=== PATIENT | male | born 1945 | race Caucasian/White ===

== ENCOUNTER 2016-06-08 09:00 | Inpatient (IN) | payer MEDICARE, BC ==
[~2016-06-08] VITALS: Ht 175.3 cm; Wt 95.5 kg
[~2016-06-08 09:00] MED LIST: ASPIRIN EC81 M1 PO; FLOMAX0.4 MG PO; LISINOPRIL-HCTZ1 T11 PO; NITROQUICK0.4 MG SL; PROSTATE FORMULA PO; PROTONIX40 MG PO; VENTOLIN HFA18 GM INH; VITAMIN B-121000 MCG PO; ZEBETA5 MG PO
[2016-06-08 09:03] LABS: BASOPHILS 0.2 % (0.0-2.0); EOSINOPHILS 2.7 % (0-7); HEMATOCRIT 43.8 % (42.0-54.0); HEMOGLOBIN 14.7 g/dL (13.5-17.5); IMMATURE GRANULOCYTES 0.4 % (0-5); LYMPHOCYTES 17.7 % (15-50); MCH 28.8 pg (26.0-34.0); MCHC 33.6 g/dL (31.0-37.0); MCV 85.9 fL (80.0-100.0); MEAN PLATELET VOLUME 10.5 fL (7.4-10.4); MONOCYTES 11.6 % (2-11); NEUTROPHILS 67.4 % (40-80); PLATELET COUNT 180 10x3/uL (130-400); RDW 14.3 % (11.5-14.5); WBC 8.1 10x3/uL (4.8-10.8)
[2016-06-08 09:04] LABS: INR 1.07 (0.85-1.17); PROTIME 13.7 SECONDS (11.6-15.0)
[2016-06-08 09:05] LABS: APTT 34.4 SECONDS (22.8-39.4)
[2016-06-08 09:08] LABS: APPEARANCE CLEAR (CLEAR); BILIRUBIN NEGATIVE (NEGATIVE); COLOR YELLOW (YELLOW); GLUCOSE 50 mg/dL (NEGATIVE); KETONE NEGATIVE (NEGATIVE); LEUKOCYTE ESTERASE NEGATIVE (NEGATIVE); NITRITE NEGATIVE (NEGATIVE); PROTEIN NEGATIVE (NEGATIVE); SPECIFIC GRAVITY 1.015 (1.005-1.020)
[2016-06-08] MEDS ORDERED: VIAGRA100 MG PO (09:08)
[2016-06-08 09:09] LABS: CALCIUM 9.5 mg/dL (8.5-10.1); CREATININE - SERUM 1.1 mg/dL (0.6-1.3)
[2016-06-08 09:19] LABS: BACTERIA FEW /hpf (NONE SEEN); EPITHELIAL CELLS RARE /hpf (0-5); MUCUS <1+ /lpf (NONE SEEN); RED CELLS - URINE 0-5 /hpf (0-5); WHITE CELLS - URINE OCC /hpf (0-5)
[2016-06-12] VITALS (17 sets, daily range): BP systolic 99–142; BP diastolic 69–93; Ht 175.3 cm; Wt 95.5 kg
--- NOTE | 2016-06-12 07:36 | NUR ---
LEFT LEG AND FOOT WASHED WITH HIBICLENS AND ALCOHOL PRIOR TO CHLORPREP PER DN
--- NOTE | 2016-06-12 12:33 | NUR ---
* Is the patient Alert and Oriented? Yes 0 * How many steps to enter\exit or inside your home? 3 0 * PCP [facility]ib Louise (Dr. Dylan Sampson) - [place] * [facility] [place] [facility] * Preadmission Environment Home with Family 0 * ADLs Independent 0 * Equipment Rolling Walker 0 * List name and contact numbers for known caregivers / representatives who currently or will assist patient after discharge: Spouse - Elvia [phone] or [phone] 0 * Additional services required to return to the preadmission environment? Yes 0 * Can the patient safely return to the preadmission environment? Yes 0 * Has this patient been hospitalized within the prior 30 days at any hospital? No 06/12/2016 12:34 DCP: Discharge Planning Patient Name: LORRAINE ANDRADE Admission Status: Elective Accout number: [id number] Admission Date: 06-12-2016 : 1945 Admission Diagnosis: Attending: NORBERT Current LOS: 1 Anticipated DC Date: 06-14-2016 Planned Disposition: Outpatient PT\OT Primary Insurance: MEDICARE A & B Discharge Planning Comments: CM met with patient to assess dc plans/needs. Patient states he lives at home with his , Elvia. Prior to admission, he was using a cane for mobility, but does have a rolling walker at home. At dc, he will return home with his . He is agreeable to outpatient physical therapy. CPM has been ordered by MD office through [facility] prior to admission & will be delivered to the hospital before discharge. CM will follow. Metal Stud Framer: Bernice N[place]
--- NOTE | 2016-06-12 12:39 | NUR ---
RECEIEVED PT FROM PACU AT 0915. NO CMPLAINTS AT PRESENT. RG WRAP TO LEFT LEG TO ANKLE WITH ICE NOTED TO LEFT KNEE. VS STABLE. CALL LIGHT IN REACH. AT BEDSIDE
--- NOTE | 2016-06-12 19:20 | NUR ---
RECIEVED SHIFT REPORT. PT IS LYING IN BED. ALERT AND ORIENTED AND ABLE TO VERBALIZE NEEDS. IV IS PATENT AND FLUIDS ARE RUNNING PER ORDER. SCD'S ON. CPM ON. O2 @ 2 PER NASAL CANNULA. DRESSING TO LEFT KNEE C/D/I. NO NEEDS ARE VERBALIZED AT THIS TIME. WILL CONTINUE TO MONITOR. SIDE RAILS ARE UP X 2. BED IS IN LOWEST POSITION. BED ALARM IS ON FOR SAFETY. CALL LIGHT IS WITHIN REACH.
--- NOTE | 2016-06-12 21:14 | NUR ---
SHIFT ASSESSMENT COMPLETED. NIGHT MEDS GIVEN WITH NO PROBLEMS. PT C/O PAIN 09/04. ADMINISTERED PRESCRIBED PRN NORCO PER ORDER. DENIES FURTHER NEEDS. WILL MONITOR. SIDE RAILS X 2. BED LOW. BED ALARM ON. CALL LIGHT IN REACH.
[2016-06-13 00:21] VITALS: BP 122/69
[2016-06-13 05:00] VITALS: BP 130/61
[2016-06-13 06:46] LABS: BASOPHILS 0.1 % (0.0-2.0); EOSINOPHILS 0.4 % (0-7); HEMATOCRIT 32.7 % (42.0-54.0); HEMOGLOBIN 10.6 g/dL (13.5-17.5); IMMATURE GRANULOCYTES 0.4 % (0-5); LYMPHOCYTES 11.8 % (15-50); MCH 28.1 pg (26.0-34.0); MCHC 32.4 g/dL (31.0-37.0); MCV 86.7 fL (80.0-100.0); MEAN PLATELET VOLUME 10.9 fL (7.4-10.4); MONOCYTES 14.8 % (2-11); NEUTROPHILS 72.5 % (40-80); PLATELET COUNT 161 10x3/uL (130-400); RBC 3.77 10x6/uL (4.20-6.10); RDW 14.5 % (11.5-14.5); WBC 10.2 10x3/uL (4.8-10.8)
[2016-06-13 07:16] LABS: ALBUMIN 2.8 g/dL (3.4-5.0); ANION GAP 11.4 mmol/L (8-16); BILIRUBIN - TOTAL 0.47 mg/dL (0.2-1.3); CALCIUM 8.1 mg/dL (8.5-10.1); CARBON DIOXIDE 26.2 mmol/L (21.0-32.0); CREATININE - SERUM 1.2 mg/dL (0.6-1.3); POTASSIUM - SERUM 3.6 mmol/L (3.5-5.1)
--- NOTE | 2016-06-13 07:48 | NUR ---
AWAKE AND ALERT. ORIENTED X3. NO C/O AT THIS TIME. ON CPM. LUNGS ARE CLEAR BILATERALLY, NO COUGH NOTED. REPORTS USING IS INSTRUCTED. SKIN IS INTACT WITHOUT REDNESS EXCEPT INCISION TO LEFT KNEE WHICH HAS A DRY INTACT DRESSING IN PLACE. SCD'S IN PLACE. IV TO RIGHT HAND PATENT WITHOUT REDNESS AT INSERTION SITE. DENIES NEEDS.
[2016-06-13 07:53] VITALS: BP 115/58
--- NOTE | 2016-06-13 09:15 | NUR ---
UP TO CHAIR AT BEDSIDE PER PT. REQUESTED AND GIVEN ONE HYDROCODONE PO FOR C/O LEFT KNEE PAIN LEVEL 7. WILL MONITOR.
[2016-06-13 12:25] VITALS: BP 110/68
[2016-06-13 16:18] VITALS: BP 115/51
--- NOTE | 2016-06-13 19:25 | NUR ---
RECIEVED SHIFT REPORT. PT IS LYING IN BED. ALERT AND ORIENTED AND ABLE TO VERBALIZE NEEDS. IV IS PATENT AND SALINE LOC. CPM ON. SCD'S ON. DRESSING TO LEFT KNEE C/D/I. PT STATES PAIN IS 4/10. NO NEEDS ARE VERBALIZED AT THIS TIME. WILL CONTINUE TO MONITOR. SIDE RAILS ARE UP X 2. BED IS IN LOWEST POSITION. BED ALARM ON FOR SAFETY. CALL LIGHT IS WITHIN REACH.
--- NOTE | 2016-06-13 19:38 | NUR ---
ATE ALL OF SUPPER. NO C/O AT THIS TIME. DENIES NEEDS. NO CHANGES NOTED.
--- NOTE | 2016-06-13 21:16 | NUR ---
SHIFT ASSESSMENT COMPLETED. NIGHT MEDS GIVEN WITH NO PROBLEMS. PT C/O PAIN 12/04. ADMINISTERED PRESCRIBED PRN NORCO PER ORDER. DENIES FURTHER NEEDS. WILL MONITOR. SIDE RAILS X 2. BED LOW. CALL LIGHT IN REACH.
[2016-06-13 22:00] VITALS: BP 115/57
[2016-06-14 05:35] LABS: BASOPHILS 0.2 % (0.0-2.0); EOSINOPHILS 3.7 % (0-7); HEMATOCRIT 29.4 % (42.0-54.0); HEMOGLOBIN 9.5 g/dL (13.5-17.5); IMMATURE GRANULOCYTES 0.5 % (0-5); LYMPHOCYTES 12.3 % (15-50); MCH 27.8 pg (26.0-34.0); MCHC 32.3 g/dL (31.0-37.0); MEAN PLATELET VOLUME 11.2 fL (7.4-10.4); MONOCYTES 16.2 % (2-11); NEUTROPHILS 67.1 % (40-80); PLATELET COUNT 147 10x3/uL (130-400); RBC 3.42 10x6/uL (4.20-6.10); RDW 14.7 % (11.5-14.5); WBC 8.8 10x3/uL (4.8-10.8)
[2016-06-14 05:47] LABS: ALBUMIN 2.6 g/dL (3.4-5.0); ANION GAP 10.3 mmol/L (8-16); BILIRUBIN - TOTAL 0.6 mg/dL (0.2-1.3); CALCIUM 7.3 mg/dL (8.5-10.1); CARBON DIOXIDE 28.1 mmol/L (21.0-32.0); CREATININE - SERUM 1.2 mg/dL (0.6-1.3); POTASSIUM - SERUM 3.4 mmol/L (3.5-5.1); PROTEIN - SERUM 5.5 g/dL (6.4-8.2)
--- NOTE | 2016-06-14 08:03 | NUR ---
PT SEEN AND ASSESSED. LEFT KNEE IN CPM MACHINE AT PRESENT. COMPLAINS OF MINIMAL PAIN-RECENTLY HAD PAIN MEDS. ABLE TO MOVE TOES FREELY-WARM AND PINK. RG WRAP NOTED MIDTHIGH TO CALF. BED ALARM ON FOR SAFETY. CALL LIGHT IN REACH
[2016-06-14 08:13] VITALS: BP 135/67
--- NOTE | 2016-06-14 11:54 | NUR ---
06/14/2016 11:53 DCP: Discharge Planning Patient has decided to go to outpatient physical therapy over home health. He has chosen [facility] in [place] for outpatient physical therapy. Appt. scheduled 06/16 @ [id number]. Rx faxed. Anticipate dc this afternoon after CPM delivered.
[2016-06-14 11:56] VITALS: BP 143/70
[2016-06-14] MEDS ORDERED: ELIQUIS2.5 MG PO (12:39)
[2016-06-14] MEDS ORDERED: PERCOCET 10/3251 TA1 PO (12:42)
--- NOTE | 2016-06-14 13:36 | NUR ---
DRESSING CHANGED TO LEFT KNEE. INCISION AND CLIPS ARE CLEAN AND DRY AND INTACT. NEW AQUUACELL DRESSING APPLIED
--- NOTE | 2016-06-26 18:23 | OP ---
PATIENT NAME: LORRAINE ANDRADE MEDICAL RECORD: [id number] :43 LOCATION:D.MS [id number] ADMISSION DATE:06/12/16 SURGEON: TEZ SALAZAR MD DATE OF OPERATION: 06/12/2016 PREOPERATIVE DIAGNOSIS: Degenerative arthritis, left knee. POSTOPERATIVE DIAGNOSIS: Degenerative arthritis, left knee. PROCEDURE: Left total knee arthroplasty. SURGEON: Tez Salazar MD ANESTHESIA: General. INTRAOPERATIVE COMPLICATIONS: None. SUMMARY OF PATHOLOGIC FINDINGS: Severe extensive osteoarthritis of the knee, tricompartmental. IMPLANTS USED: Erin triathlon total knee arthroplasty size 6 distal femur, 11 polyethylene insert, 6 tibial baseplate, and 31 patellar component. OPERATIVE SUMMARY IN DETAIL: After obtaining the appropriate preoperative orthopedic surgery consent as well as anesthetic consultation, evaluation and clearance, the patient was brought to the operating room and placed on the operating table in supine position. After adequate general laryngeal mask was administered, tourniquet was placed about the proximal aspect of the left lower extremity. Left lower extremity was then prepped and draped in a routine sterile fashion. The leg was elevated and exsanguinated, tourniquet inflated to 350 mmHg. Midline incision was taken down for a paramedian arthrotomy. Patella was everted. Soft tissue excision was done in the usual fashion. Intramedullary guide hole was created for distal femur cuts, intramedullary guide hole was created in the proximal tibia for a proximal tibial cut. Measurements were taken. Chamfer cuts were made. Trials were put into place. Final preparations were made on the distal femur and proximal tibia followed by resection of the articular aspect of the patella. Final preparations of patella likewise were made. The knee was irrigated using pulsatile lavage system. Bony ends were dried. Final components were cemented into place. All excess cement was removed. After the cement was allowed to harden, the knee was taken through a range of motion and found to be stable in all planes. Paramedian arthrotomy was closed with #2 Ethibond followed by #1 Vicryl, 2-0 Vicryl and skin hanna. Sterile dressings were applied. The patient was awakened, taken to recovery in stable condition. All final needle and sponge counts were correct. TRANSINT:[id number] Voice Confirmation ID: [id number] DOCUMENT ID: [id number] OPERATIVE REPORT [id number] ANDRADELORRAINE MD, TEZ ROMERO at 1823 CC: [id number] DICTATION DATE: 06/12/16815 BELTING AND WEBBING INSPECTOR: 06/12/16 0828 DIS IN 06/14/16 [address] [place] [address]
== END 2016-06-14 16:21 | disposition home or self-care (01) | DRG 470 ==
LOC: D.MS 06-12 05:14 → D.SDCHOLD 06-12 05:14 → D.MS 06-12 08:28 → D.SDCHOLD 06-12 08:50 → D.MS 06-14 16:21
PROVIDERS: Family Medicine; ADMIT Orthopaedic Surgery
PROC: 0SRD0JZ Replacement of Left Knee Joint with Synthetic Substitute, Open Approach (ICD-10-PCS; principal; 2016-06-12 07:30)
DX: M17.12 Unilateral primary osteoarthritis, left knee (principal); D62 Acute posthemorrhagic anemia; I25.10 Atherosclerotic heart disease of native coronary artery without angina pectoris; J45.909 Unspecified asthma, uncomplicated

== ENCOUNTER 2018-03-21 10:56 | Outpatient (CLI) | payer MEDICARE, BC ==
[~2018-03-21] VITALS: Ht 175.3 cm; Wt 96.4 kg
--- NOTE | ~2018-03-21 | OP ---
PATIENT NAME: LORRAINE ANDRADE MEDICAL RECORD: [id number] :43 LOCATION:D.CAT ADMISSION DATE: SURGEON: RHINA GARCIA MD DATE OF OPERATION: 03/21/2018 PROCEDURES: Left heart catheterization, selective coronary angiography, right femoral artery approach. CATHETERS: A 5-Sudanese sheath, 5/4 left and right Zaynab, 5/4 pig. The procedure was well tolerated. The patient was returned to the garzon, sheath removed. ExoSeal device placed. FINDINGS: Left ventriculography in 30-degree CHILDERS view, normal wall motion, normal systolic function. CORONARY ANATOMY: LEFT MAIN: Left main is free of disease. LAD: An area of previous stenting shows a very discrete 80% stenosis in its midportion of restenosis. There is a small ramus branch that has ostial stenosis. CIRCUMFLEX: Large circumflex free of disease. RIGHT CORONARY ARTERY: Dominant artery, free of disease. 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 PLAN: Intervention momentarily. DESCRIPTION OF PROCEDURE: A 5-Sudanese sheath was exchanged for a 6-Sudanese sheath. A 3.5 EBU guiding catheter provided excellent guide catheter support followed by 300 cm Whisper wire placed across tightly occluded LAD down this portion of this vessel. We dilated with a 3.0 50-mm Routt balloon up to 14 atmospheres. This showed excellent resolution of an 80% restenosis. No significant residual. ZACHERY flow was 3 throughout the procedure. We did attempt to wire the ostium of the ramus intermediate branch, however, unable to do this given the small diameter of the vessel, felt this to be best managed medically. Sheath closed with ExoSeal device. Plavix was loaded in the lab. TRANSINT:[id number] Voice Confirmation ID: [id number] DOCUMENT ID: [id number] RHINA GARCIA MD at 1418 CC: [id number] DICTATION DATE: 03/21/18 1507 DRIVER LIFTER OF [employer]ITATION TRUCK: 03/21/181936 DEP CLI 03/21/18 [facility] [address] [place] [address]
--- NOTE | ~2018-03-21 | HEMODYNAMI ---
PATIENT:LORRAINE ANDRADE MEDICAL RECORD: [id number] : 41 LOCATION:[facility] ADMISSION DATE: 03/21/18 Generatedon:03/21/201815:09 Patient name: LORRAINE ANDRADE Patient #: [id number] SSN: : 1945 Date of study: 03/21/2018 Page: Of Hemodynamic Procedure Report Patient Data Patient Demographics Procedure consent was obtained First Name: LORRAINE Gender: Male Last Name: LUPE : 1945 Patient #: [id number] Age: 72 year(s) Race: Unknown Additional ID: [id number] Contact details Address: [place] [address] State: [place] City: [place] Zip code: [address] Past Medical History Allergies: No known allergies Admission Admission Data Admission Date: 03/21/2018 Admission Time: 10:56 Height (in.): 68 BSA: 2.1 (m2) Height (cm.): 172.72 BMI: 32.23 (kg/m2) Weight (lbs.): 212 Weight (kg.): 96.16 Lab Results Lab Result Date: 03/21/2018 Lab Result Time: 0:00 Biochemistry Name Units Result Min Max BUN mg/dl 14 --(--*-)-- 7 18 Creatinine mg/dl 1.3 --(---*)-- 0.6 1.3 CBC Name Units Result Min Max Hemoglobin g/dl 14.2 --(*---)-- 13.5 17.5 Procedure Procedure Types Cath Procedure Diagnostic Procedure LHC LHC w/Coronaries Sedation Charges Moderate Sedation up to 15 minutes PCI Procedure PTCA PTCA Initial Procedure Description Procedure Date Procedure Date: 03/21/2018 Procedure Start Time: 14:40 Procedure End Time: 14:59 Procedure Staff Name Function Musa Longoria MD Performing Physician Christiana Gomez RT Scrub Leslie Celestin RN Nurse Sasha Zaidi RT Monitor Procedure Data Cath Procedure Fluoroscopy Diagnostic fluoroscopy Total fluoroscopy Time: 5.5 time: 5.5 min min Diagnostic fluoroscopy Total fluoroscopy dose: 675 dose: 675 mGy mGy Contrast Material Contrast Material Type Amount (ml) Isovue 300 92 Entry Location Entry Primary Successful Side Size Upsize Upsize Entry Closure Succes sful Closure Location (Fr) 1 (Fr) 2 (Fr) Remarks Device Remarks Femoral Right 5 Fr 6 Fr Exoseal artery Short Estimated blood loss: 10 ml Diagnostic catheters Device Type Used For End Catheter Placement MULTIPACK JL 4.0 5Fr Left Coronary catheter Angiography MULTIPACK 3DRC 5Fr Right Coronary catheter Angiography MULTIPACK Pigtail 5 Fr LV Angiography catheter Procedure Complications No complications Procedure Medications Medication Administration Route Dosage 0.9% NaCl I.V. 100 ml/hr Oxygen etCO2 Nasal cannula 2 l/min Lidocaine 2% added to field 20 Heparin Flush Bag added to field 2 bags (1000units/500ml NS) Versed I.V. 2 mg Fentanyl I.V. 50 mcg Versed I.V. 1 mg Fentanyl I.V. 25 mcg Heparin Bolus I.V. 5000 units Integrilin (Bolus I.V. 8.5 ml 2mg/ml) Plavix P.O. 600 mg Hemodynamics Rest BSA: 2.1 (m2) O2 Consumption: Estimated: 218.37 (ml/min) O2 Consumption indexed: Estimated:103.99 (ml/min/m) Heart Rate: 41 (bpm) Pressure Samples Time Site Value (mmHg) Purpose Heart Use Rate(bpm) 14:47 LV 104/4,15 Snapshot 42 14:47 AO 115/68(89) Pullback 60 14:47 LV 114/11,12 Pullback 60 Gradients Valve Time Site 1 Site 2 Mean SEP/DFP Peak To Heart Use (mmHg) (sec/min) Peak Rate (mmHg) (bpm) Aortic 14:47 LV AO 0 9 0 60 114/11,12 115/68(89) Calculations Valve P-P Mean Valve Index Valve Source Name Gradient Area Flow (cm2) Aortic 0 0 0 0 Snapshots Pre Cath Intra NCS Post Cath Vital Signs Time Heart Resp SPO2 etCO2 NIBP (mmHg) Rhythm Pain Sedation Rate (ipm) (%) (mmHg) Status Level (bpm) 14:18:45 51 15 99 22.4 155/89(126) SB 0 (11) 10(A) , No pain 14:23:11 55 13 98 25 135/79(109) SB 0 (11) 10(A) , No pain 14:27:29 55 13 97 23.7 125/75(91) SB 0 (11) 10(A) , No pain 14:31:45 53 14 97 26 126/75(91) SB 0 (11) 10(A) , No pain 14:36:01 54 14 97 22 120/73(91) SB 0 (11) 10(A) , No pain 14:40:09 52 15 98 20.8 125/78(102) SB 0 (11) 10(A) , No pain 14:44:21 60 13 98 37 129/81(96) NSR 0 (11) 10(A) , No pain 14:48:39 60 14 98 28 126/72(99) NSR 0 (11) 10(A) , No pain 14:52:55 64 15 97 23.8 121/74(93) NSR 0 (11) 10(A) , No pain 14:57:05 64 16 97 38 138/81(114) NSR 0 (11) 10(A) , No pain Medications Time Medication Route Dose Verified Delivered Reason Notes Effectiveness by by 14:25:42 0.9% NaCl I.V. 100 Musa Leslie used for ml/hr [facility] procedure MD FRIAS 14:25:49 Oxygen etCO2 2 Musa Leslie used for Nasal l/min [facility] procedure cannula MD FRIAS 14:25:54 Lidocaine 2% added 20ml Musa Vigil for local to vial [facility] anesthetic field MD [place] 14:25:59 Heparin Flush added 2 Musa Musa used for Bag to bags [facility] procedure (1000units/500ml field MD [place] NS) 14:26:08 Versed I.V. 2 mg Musa Leslie for sedation [facility] Celestin MD, RN 14:26:16 Fentanyl I.V. 50 Musa Leslie for sedation mcg [facility] Talib Celestin MD, RN 14:40:59 Versed I.V. 1 mg Musa Leslie for sedation [facility] Talib Celestin MD, RN 14:41:04 Fentanyl I.V. 25 Musa Leslie for sedation mcg [facility] Talib Celestin MD, RN 14:51:17 Heparin Bolus I.V. 5000 Musa Leslie for verif ied units [facility] anticoagulation with Dr. MD FRIAS J Carlos 14:51:57 Integrilin I.V. 8.5 Musa Nelson for waste d (Bolus 2mg/ml) ml [facility] anticoagulation 1.5 mL MD FRIAS 14:53:52 Plavix P.O. 600 Musa Nelson for mg [facility] Talib Celestin antiplatelet RN therapy Procedure Log Time Note 13:15:43 Signed procedure consent form obtained from patient. 13:15:44 Time tracking: Regular hours (M-F 7:00 - 5:00) 13:15:49 Plan of Care:Hemodynamics will remain stable., Cardiac rhythm will remain stable., Comfort level will be maintained., Respiratory function will remain adequate., Patient/ family verbilizes understanding of procedure., Procedure tolerated without complication., Recovers from procedure without complications.. 13:16:06 H&P Date Dictated: 03/15/2018 Within 30 days and on chart., H&P Addendum completed by physician on day of procedure. (MUST COMPLETE FOR ALL OUTPATIENTS). 13:16:13 Patient allergic to No known allergies 13:16:37 Patient Height : 68 inches 13:16:41 Patient Weight : 212 lbs 13:18:50 Lab Result : BUN 14 mg/dl 13:18:50 Lab Result : Creatinine 1.3 mg/dl 13:18:50 Lab Result : Hemoglobin 14.2 g/dl 14:03:04 Leslie Celestin RN sent for patient. Start room use. 14:09:47 Patient received from Pre/Post Procedure Room to [facility] 1 Alert and oriented. Tansferred to table in Supine position. 14:09:49 Warm blankets applied, and ellie hugger turned on for patient comfort. 14:09:50 Correct patient and procedure confirmed by team. 14:09:51 ECG and BP/O2 sat monitors applied to patient. 14:17:37 Vital chart was started 14:20:25 Baseline sample Acquired. 14:20:29 Rhythm: sinus bradycardia 14:20:31 Full Disclosure recording started 14:21:20 Pre-procedure instructions explained to patient. 14:21:21 Pre-op teaching completed and patient verbalized understanding. 14:21:26 Family in waiting room. 14:21:30 Patient NPO since Midnight. 14:21:40 Is the patient allergic to Iodine/contrast media? No. 14:21:44 Is patient on blood thinner?No 14:21:46 Patient diabetic? No. 14:21:49 Previous problem with sedation/anesthesia? No ? 14:21:50 Snore? Yes 14:21:51 Sleep apnea? No 14:21:52 Deviated septum? No 14:21:53 Opens mouth fully? Yes 14:21:54 Sticks out tongue? Yes 14:21:56 Airway obstruction? No ? 14:22:01 Dentures? Yes OUT 14:22:04 Pre procedure: right dorsailis pedis pulse 2+ Normal; easily identifiable; not easily obliterated 14:22:09 Modified Yaya's test Ulnar > 7 seconds. 14:22:11 Patient pain scale 0/10 ?. 14:22:18 IV patent on arrival in left forearm with 0.9% NaCl at [facility] 14:22:20 Lab results completed and on chart. 14:22:24 Right groin area was prepped with chlora-prep and draped in sterile fashion 14:22:25 Alarms reviewed by R. N. 14:22:25 Sharps counted by scrub and verified by R.N. 14:22:30 Use device set Femoral Dx 14:22:33 ACIST Syringe (79660) opened to sterile field. 14:22:34 Bag Decanter (2002S) opened to sterile field. 14:22:34 Medline Cath Pack ([id number]) opened to sterile field. 14:22:35 DIAGNOSTIC WIRE .035 260cm J wire (294381) opened to sterile field. 14:22:37 ACIST Hand Control (74729) opened to sterile field. 14:22:37 ACIST Manifold (38909) opened to sterile field. 14:22:38 DIAGNOSTIC Multipack 5Fr catheter set (CA3781) opened to sterile field. 14:22:39 Tegaderm 4 x 4 (1626W) opened to sterile field. 14:22:40 SHEATH Prelude 5Fr 0.035 ([id number]-8U-86-035) opened to sterile field. 14:23:31 Final Timeout: patient, procedure, and site verified with staff and physician. All members of the team are in agreement. 14:23:32 Right groin site verified by team. 14:23:37 Physical assessment completed. ASA score P 2 - A patient with mild systemic disease as per Musa Longoria MD. 14::42 Sedation plan: IV Moderate Sedation Medication:Versed, Fentanyl 14::42 0.9% NaCl 100 ml/hr I.V. was administered by Leslie Celestin RN; used for procedure; 14::49 Oxygen 2 l/min etCO2 Nasal cannula was administered by Leslie Celestin RN; used for procedure; 14::54 Lidocaine 2% 20ml vial added to field was administered by Musa Longoria MD; for local anesthetic; 14::59 Heparin Flush Bag (1000units/500ml NS) 2 bags added to field was administered by Musa Longoria MD; used for procedure; 14:26:00 Zero performed for pressure channel P1 14:26:08 Versed 2 mg I.V. was administered by Leslie Celestin RN; for sedation; 14:26:16 Fentanyl 50 mcg I.V. was administered by Leslie Celestin RN; for sedation; 14:40:18 Procedure started. 14:40:22 Local anesthetic to right femoral artery with Lidocaine 2% by Musa Longoria MD.INITIAL ACCESS ONLY 14:40:56 A 5 Fr sheath was inserted into the Right Femoral artery 14::59 Versed 1 mg I.V. was administered by Leslie Celestin RN; for sedation; 14:41:04 Fentanyl 25 mcg I.V. was administered by Leslie Celestin RN; for sedation; 14:41:24 A MULTIPACK JL 4.0 5Fr catheter was advanced over the wire and used for Left Coronary Angiography. 14:44:30 Catheter removed. 14:44:37 A MULTIPACK 3DRC 5Fr catheter was advanced over the wire and used for Right Coronary Angiography. 14:45:49 Catheter removed. 14:46:19 A MULTIPACK Pigtail 5 Fr catheter was advanced over the wire and used for LV Angiography. 14:47:16 LV gram done using CHILDERS 14:47:24 EF : 50 % 14:47:33 Injector settings: Ml/sec: 10, Volume: 20, 14:48:23 Use device set [place] PCI 14:48:26 SHEATH Prelude 6Fr 0.035 (YON-4Z-05-035) opened to sterile field. 14:48:30 INFLATOR Merit BasixCompak (EU4917) opened to sterile field. 14:48:31 WHISPER 300cm guide wire ([id number]) opened to sterile field. 14:48:50 Catheter removed. 14:49:07 Sheath upsized to a 6 Fr Short. 14:51:16 6 Fr EBU 3.5 guide catheter was inserted over the wire 14:51:17 Heparin Bolus 5000 units I.V. was administered by Leslie Celestin RN; for anticoagulation; verified with Dr. Whitman 14:51:57 Integrilin (Bolus 2mg/ml) 8.5 ml I.V. was administered by Leslie Celestin RN; for anticoagulation; wasted 1.5 mL 14:52:45 WHISPER wire advanced. 14:53:36 Inflate balloon Inflation number: 1 A EMERGE OTW 3.0 x 15 balloon ([id number]) was prepped and advanced across the Mid LAD, then inflated to 12 MIKE for 0:31 (min:sec). 14:53:52 Plavix 600 mg P.O. was administered by Leslie Celestin RN; for antiplatelet therapy; 14:54:12 Wire redirected to RAMUS. 14:55:43 Balloon removed over the wire. 14:55:44 Wire removed. 14:55:45 Guide catheter removed. 14:56:01 Sheath removed intact; hemostasis achieved with Exoseal to the Right Femoral artery. 14:56:03 Procedure ended.(Physican Out) 14:56:14 Fluoroscopy time 05.50 minutes. 14:56:19 Fluoroscopy dose: 675 mGy 14:56:19 Flurop Dose total: 675 14:56:23 Contrast amount:Isovue 300 92ml. 14:56:38 Sharps counted by scrub and verified by R.N. 14:56:42 Insertion/operative site no bleeding no hematoma. 14:56:45 Post-op/insertion site Right Femoral artery dressed using a 4 x 4 and Tegaderm. 14:56:48 Post right femoral artery:stable, clean and dry 14:57:04 EXOSEAL 6Fr (EX600) opened to sterile field. 14:57:09 Post Procedure Pulses reassessed and unchanged 14:57:18 Post-procedure physical assessment completed. ASA score P 2 - A patient with mild systemic disease as per Musa Longoria MD. 14:57:22 Post procedure rhythm: sinus rhythm 14:57:25 Estimated blood loss: 10 ml 14:57:27 Post procedure instruction explained to patient.Patient verbalizes understanding. 14:57:27 Patient needs reinforcement of post procedure teaching. 14:57:32 Procedure Complication : No complications 14:57:36 See physician's report for complete and final results. 14:57:46 Procedure type changed to Cath procedure, Diagnostic procedure, LHC, LHC w/Coronaries, Sedation Charges, Moderate Sedation up to 15 minutes, PCI procedure, PTCA, PTCA Initial 14:58:12 Post right femoral artery:hematoma 14:58:17 Femstop placed over the right femoral artery at 170 mmHg. Hemostasis achieved. 14:59:23 Procedure and supply charges have been captured, reviewed, submitted and are correct. 14:59:36 Vital chart was stopped 14:59:39 Report given to Pre/Post Procedure Room. 14:59:41 Patient transfered to Pre/Post Procedure Room with Stretcher. 14:59:43 Procedure ended. 14:59:43 Full Disclosure recording stopped 15:00:58 FEMSTOP Gold ([id number]) opened to sterile field. 15:08:52 End room use (Document Last) Intervention Summary Intervention Notes Time ActionType Lesion and Equipment Action# Pressure Duration Attributes Used 14:53:36 Inflate Mid LAD EMERGE OTW 1 12 00:31 balloon 3.0 x 15 balloon ([id number]) Device Usage Item Name Manufacture Quantity Catalog Number Hospital Part Current Minimal Lot# / Charge Number Stock Stock Serial# Code ACIST Syringe Acist 1 08674 526548 871415 629612 20 (31064) [employer] Bag Decanter Microtek 1 375162 25750 293688 5 () Medical Inc. Medline Cath Medline 1 [id number] 559129 76706 172260 5 Pack ([id number]) DIAGNOSTIC WIRE St Nadeem 1 733269 646589 586735 091201 30 .035 260cm J wire (049703) ACIST Hand Acist 1 88553 907396 762631 828479 5 Control (15891) [employer] ACIST Manifold Acist 1 66789 054231 430567 669366 5 (59074) [employer] Inc DIAGNOSTIC Cardinal 1 LN0813 450857 21215 962279 30 Multipack 5Fr Health catheter set (ER1656) Tegaderm 4 x 4 3M 1 1626W 590313 217593 542228 5 (1626W) SHEATH Prelude Merit 1 EBJ-0H-35-035 015253 671571 671475 5 5Fr 0.035 Medical (GCF-9Z-22-035) MULTIPACK JL Cardinal 1 233178 5 4.0 5Fr Health catheter MULTIPACK 3DRC Cardinal 1 448106 5 5Fr catheter Health MULTIPACK Cardinal 1 278494 5 Pigtail 5 Fr Health catheter SHEATH Prelude Merit 1 NXF-9D-04-35 091167 5872865 912205 5 6Fr 0.035 Medical (IOU-0G-14-035) INFLATOR Merit Merit 1 RM5763 091689 654960 648360 15 BasixCompak Medical (KR2463) WHISPER 300cm [place] 1 [id number] 204920 584834 922676 5 guide wire Vascular ([id number]) EMERGE OTW 3.0 [place] 1 [id number] 235208 717512 691641 5 [id number] x 15 balloon Scientific ([id number]) EXOSEAL 6Fr Cardinal 1 EX600 297670 691630 180315 10 (EX600) Health FEMSTOP Gold St Nadeem 1 Z40210 334695 742727 802973 5 (I05584) Signature Audit [place] Stage Time Signature Unsigned Intra-Procedure 03/21/2018 Sasha 3:09:39 PM Counts RT(R) Signatures Monitor : Sasha Signature : Counts RT Date : Time : [facility] [address] [place] [address]
[~2018-03-21 10:56] MED LIST changes: +ELIQUIS2.5 MG PO; +PERCOCET 10/3251 TA1 PO; +VIAGRA100 MG PO
[2018-03-21 11:32] VITALS: BP 147/63; Ht 175.3 cm; Wt 96.4 kg
[2018-03-21 11:45] LABS: BASOPHILS 0.4 % (0-2); EOSINOPHILS 3.5 % (0-7); HEMOGLOBIN 14.2 g/dL (13.5-17.5); IMMATURE GRANULOCYTES 0.4 % (0-5); LYMPHOCYTES 18.3 % (15-50); MCH 28.6 pg (26.0-34.0); MCHC 33.8 g/dL (31.0-37.0); MCV 84.5 fL (80.0-100.0); MEAN PLATELET VOLUME 10.5 fL (7.4-10.4); MONOCYTES 9.1 % (2-11); NEUTROPHILS 68.3 % (40-80); PLATELET COUNT 171 10x3/uL (130-400); RBC 4.97 10x6/uL (4.20-6.10); RDW 14.5 % (11.5-14.5)
[2018-03-21 11:53] LABS: ANION GAP 12.8 mmol/L (8-16); CALCIUM 8.9 mg/dL (8.5-10.1); CARBON DIOXIDE 29.2 mmol/L (21.0-32.0); CREATININE - SERUM 1.3 mg/dL (0.6-1.3)
[2018-03-21] MEDS ORDERED: PLAVIX75 MG PO (15:22)
== END 2018-03-21 18:35 | disposition home or self-care (01) ==
LOC: D.CATH 10:56
PROVIDERS: Internal Medicine Interventional Cardiology
DX: I25.110 Atherosclerotic heart disease of native coronary artery with unstable angina pectoris (principal)

== ENCOUNTER → 2019-10-23 09:23 | Outpatient (CLI) | payer MEDICARE, BC ==
[2018-03-21 11:32] VITALS: BMI 31.3
[~2019-10-23 09:23] MED LIST changes: +PLAVIX75 MG PO
--- NOTE | 2019-10-24 12:12 | EC ---
PATIENT:LORRAINE ANDRADE DATE OF SERVICE: 10/23/19 SEX: M MEDICAL RECORD: [id number] DATE OF : 41 LOCATION:[facility] AGE OF PATIENT: 74 ADMISSION DATE: 10/23/19 REFERRING PHYSICIAN: INTERPRETING PHYSICIAN: RHINA GARCIA MD ECHOCARDIOGRAM REPORT ECHO CHARGES 4 ECHO COMPLETE Date: 10/23/19 CLINICAL DIAGNOSIS: H/O CAD/HTN ECHOCARDIOGRAPHIC MEASUREMENTS (adult normal given) AC root (d.<3.7cm) 2.9 cm LV Septum d (<1.2 cm> 1.2 cm Valve Excursion 1.5 cm LV Septum (systole) 1.8 cm Left Atria (s.<4.0cm> 4.8 cm LVPW d(<1.2cm) 1.2 cm RV (d.<2.3cm) 3.3 cm LVPW (sytole) 2.0 cm LV diastole(<5.6CM) 5.8 cm MV E-F(>70mm/sec) cm LV systole 3.1 cm LVOT Diameter 1.8 cm MV exc.(>10mm) cm Est.ejection fraction (50-75%) % DOPPLER: LVIT cm/sec A 45.0 cm/sec E 65.0 cm/sec LA cm/sec RVSP 34.0 mmHg LVOT 93.0 cm/sec AOP1/2T m/s Asc. Ao 165 cm/sec RVOT 56.0 cm/sec RA cm/sec PA 83.0 cm/sec AV Gradient Peak 11.0 mmHg AV Mean 6.6 mmHg AV Area 1.4 cm MV Gradient Peak 2.9 mmHg MV Mean 0.54 mmHg MV Area cm COMMENTS: OP - HC Corporate Legal Assistant: 1 LIZA HOLLAND Machine Sizer: 3 Dr. Whitman TAPE# PACS Pericardial Effusion N DATE OF SERVICE: Adequate 2D, color flow imaging, spectral Doppler, and M-Mode. LVH is present. LV internal dimensions upper limits of normal at 5.8 cm. Wall motion is normal. EF greater than or equal to 55%. Aortic valve is sclerotic. There is no evidence of stenosis by Doppler interrogation. Left atrium dilated at 4.7 cm. Mitral valve shows no prolapse. Mild MR. Right-sided chambers are grossly normal. Trace TR. ECHOCARDIOGRAM REPORT [id number] LORRAINE ANDRADE TRANSINT:[id number] Voice Confirmation ID: [id number] DOCUMENT ID: [id number] RHINA GARCIA MD at 1212 CC: [id number] DICTATION DATE: 10/23/19 1300 SOFTWARE DEVELOPMENT LEADER: 10/23/19 1650 DEP CLI 10/23/19 [facility] [address] [place] [place] [id number]
== END | disposition home or self-care (01) ==
LOC: D.HCCECHO 09:23
PROVIDERS: ATTEND Internal Medicine Interventional Cardiology
DX: I25.10 Atherosclerotic heart disease of native coronary artery without angina pectoris (principal)

== ENCOUNTER → 2020-10-29 09:21 | Outpatient (CLI) | payer MEDICARE, BC ==
[2018-03-21 11:32] VITALS: BMI 31.3
--- NOTE | ~2020-10-29 | ST ---
PATIENT:LORRAINE ANDRADE MEDICAL RECORD: [id number] SEX: M LOCATION[facility] ORDER #: ADMISSION DATE: 10/29/20 AGE OF PATIENT: 75 REFERRING PHYSICIAN: INTERPRETING PHYSICIAN: RHINA GARICA MD DATE OF SERVICE: 10/29/2020 NUCLEAR STRESS TEST FINDINGS: 1. Gated is normal, normal wall motion, normal EF, calculated EF 65%. 2. SPECT imaging: SPECT imaging in the short axis view shows good uptake along the anterior wall, lateral wall and inferior wall. 3. Horizontal axis: Horizontal axis confirms good uptake along the anterior wall and inferior wall. 4. Vertical axis: Vertical axis shows good uptake along the lateral wall and septum. FINAL IMPRESSION: 1. Normal gated, normal wall motion, normal EF 65%. 2. Normal SPECT imaging. FINAL RECOMMENDATION: This patient with a previous history of coronary artery disease, the scan is felt to have a low risk for any significant previous myocardial infarction or recurrent ischemia. Continue medical management, risk factor modification is recommended. TRANSINT:[id number] Voice Confirmation ID: [id number] DOCUMENT ID: [id number] RHINA GARCIA MD CC: [id number] DICTATION DATE: 10/31/20 1509 BEHAVIORAL HEALTH COUNSELOR: 11/01/20 0310 DEP CLI 10/29/20 [place] [id number] [place] [id number]
== END | disposition home or self-care (01) ==
LOC: D.HCCARDIO 10-26 11:00 → D.HCCECHO 10-26 11:30 → D.HCCARDIO 09:21
PROVIDERS: ATTEND Internal Medicine Interventional Cardiology
DX: I25.10 Atherosclerotic heart disease of native coronary artery without angina pectoris (principal); R06.00 Dyspnea, unspecified